=== PATIENT | female | born 1985 | race Caucasian/White ===

== ENCOUNTER → 2022-10-20 | Outpatient (CLI) | payer BC ==
--- NOTE | 2022-10-23 07:42 | MM ---
Reason for Exam: Screening (asymptomatic). Patient History: Menarche at age 11. First Full-Term at age 24. Patient has history of breast feeding. Paternal aunt had breast cancer, age 57. Paternal aunt had ovarian cancer, age 20. Last menstrual period: 10/04/2022 Risk Values: Julia 5 year model risk: 0.6%. NCI Lifetime model risk: 11.1%. Tissue Density: The breast tissue is heterogeneously dense. This may lower the sensitivity of mammography. Findings: Analyzed By CAD. There is no suspicious group of microcalcifications or new suspicious mass in either breast. Overall Assessment: Negative, BI-RAD 1 Management: Screening Mammogram of both breasts in [address] [facility] will attempt to contact patient to return for supplemental views and ultrasound if indicated. Patient should continue monthly self-breast exams. A clinical breast exam by your physician is recommended on an annual basis. This exam should not preclude additional follow-up of suspicious palpable abnormalities. Note on Julia scores and lifetime risk: 1. A Julia score greater than 3% is considered moderate risk. If this is the case, consider specialist referral to assess eligibility for a risk reducing agent. 2. If overall lifetime risk for the development of breast cancer is 20% or higher, the patient may qualify for future screening with alternating mammogram and breast MRI. Electronically signed and approved by: Reagan Jeffers DO
== END | disposition home or self-care (01) ==
LOC: MERGE 09:00 → RADMAMWWP 09:00
PROVIDERS: ATTEND Surgery
DX: Z12.31 Encounter for screening mammogram for malignant neoplasm of breast (principal); Z80.3 Family history of malignant neoplasm of breast; Z80.41 Family history of malignant neoplasm of ovary
CPT/HCPCS: 77063; 77067

== ENCOUNTER → 2023-10-24 | Outpatient (CLI) | payer BC ==
--- NOTE | 2023-10-26 13:50 | MM ---
Reason for Exam: Screening (asymptomatic). Last screening mammogram was performed 12 month(s) ago. Patient History: Menarche at age 11. First Full-Term at age 24. Premenopausal. Patient has history of breast feeding. Paternal aunt had breast cancer, age 57. Paternal aunt had ovarian cancer, age 20. Risk Values: Julia 5 year model risk: 0.6%. NCI Lifetime model risk: 11.1%. Prior Study Comparison: 10/20/2022 Bilateral MG 3D screening mammo w/cad, [facility]. Tissue Density: The breasts are heterogeneously dense, which may obscure small masses. Findings: Analyzed By CAD. Right breast: There is no suspicious group of microcalcifications or new suspicious mass. Left breast: There is no suspicious group of microcalcifications or new suspicious mass. Overall Assessment: Negative, BI-RAD 1 Management: Screening Mammogram of both breasts in [address] [facility] will attempt to contact patient to return for supplemental views and ultrasound if indicated. Patient should continue monthly self-breast exams. A clinical breast exam by your physician is recommended on an annual basis. This exam should not preclude additional follow-up of suspicious palpable abnormalities. Note on Julia scores and lifetime risk: 1. A Julia score greater than 3% is considered moderate risk. If this is the case, consider specialist referral to assess eligibility for a risk reducing agent. 2. If overall lifetime risk for the development of breast cancer is 20% or higher, the patient may qualify for future screening with alternating mammogram and breast MRI. Electronically signed and approved by: Reagan Jeffers DO
== END | disposition home or self-care (01) ==
LOC: RADMAMWWP 10:13
PROVIDERS: ATTEND Surgery
DX: Z12.31 Encounter for screening mammogram for malignant neoplasm of breast (principal); Z80.3 Family history of malignant neoplasm of breast
CPT/HCPCS: 77063; 77067

== ENCOUNTER → 2023-11-16 | Outpatient (CLI) | payer BC ==
[2023-11-16 10:14] VITALS: BP 127/77; PULSE 91; RESP 16; TEMP 98.9
--- NOTE | 2023-11-16 10:44 | P.PN ---
Subjective Progress Note Date: 11/16/23 Principal diagnosis: fibrocystic breast changes 10/27/21 Fibrocystic breast changes Melanie is a 35-year-old white female seen in consultation for Dr. Victor regarding a recent ultrasound of the left breast which revealed a new 1:00 lesion being a complex cyst versus a small fibroadenoma. She has had a stable hypoechoic lesion at 12:00 measuring 5 x 6 x 3 mm since 2017. She has not had any biopsies of this. The patient about 5 years ago noted a buzzing like sensation in the u pper outer quadrant of the left breast, at that time it was felt this was fibrocystic in nature and she should be followed closely. Secondary to COVID there was a delay in obtaining surveillance ultrasound of the left breast and this was finally performed on 05/28/2020. At that time the area of presumed fibroadenoma was stable at 12:00 region however minimally complex cyst versus small fibroadenoma at 1:00 was noted. Recommendation was for 6 month follow-up. The films however have been reviewed with Dr. Garcia from radiology who suggested an ultrasound-guided core biopsy of the 1:00 lesion would be appropriate. Patient states that she has lumpy breasts bilaterally but she has not noted any new specific masses or nodules that she is concerned about. She is not complaining of any nipple discharge or skin changes. She states she knows that if drinking caffeine it causes discomfort in both breasts. A bilateral mammogram was performed and [id number]. This was incomplete and ultr asound of both breasts were performed. On the ultrasound of both breast the right breast revealed a 0.7 x 0.6 cm cystic lesion at 11:00 The left breast revealed a 0.5 x 0.5 probably complex cyst versus fibroadenoma at 12:00, 0.5 x 0.4 cm complex cyst versus fibroadenoma at 12:00, 30.7 x 0.6 cm cystic lesion at 1:00 and a 2.5 x 1.1 cm lymph node in the axilla which appeared to be benign. This was felt to be probably benign BIRADS 3 and ultrasound of the left breast in 6 months was recommended after review of the most recent radiographs. 9-3-21 The patient's biopsy was canceled by Dr. Padilla from radiology as she felt that she did not need to have any biopsy performed. However, she did have some slight increased nodularity posterior to the left nipple areolar complex and physical examination repeat physical exam was recommended. She has not noted any lumps masses or nodules in her breasts for which she is concerned. She has not had any recent new radiographic studies preformed. She is not complaining of any new breast pains. She is not complaining of any nipple discharge or skin changes. Patient's last menstrual period was approximately 3 weeks ago. Her breasts get full and dense or right before her menstrual periods starts. 10-27-21 The patient had a bilateral mammogram performed on . This was benign BIRADS 2 and additionally she had an ultrasound of the left breast performed on the same date this revealed a benign thin-walled cyst at the 12 o'clock position incidentally increased in size. Stable-appearing left axillary lymph node was noted. This was overall assessment benign BIRADS 2 screening mammogram of both breasts in 1 year. The patient herself does not feel any new nodules lumps or masses. She is concerned. 11-16-23 BIlateral mammogram on 10-24-23 BIRAD 1 She is not complaining of any new lumps masses or nodules of concern in either breast, she has not had any surgery on her breast, she has not had any biopsies of her breast. Several years ago there was some concern about a radiographic finding which seems to have stabilized and/or resolved She is not complaining of any nipple discharge or skin changes Caffeine: 1 cup/day nicotine: Negative Chocolate: Negative Family history: father: prostate paternal aunt: breast cancer Hormonal history: Menarche: 11 , age at : 24, breast fed: yes periods regular uses BCP BCP: 17 years hormones: none Surgical history: Tonsillectomy Multiple knee arthroscopies Medical History: Mild intermittent asthma Social history: Nicotine: Negative Alcohol: Negative Drugs: Negative - Constitutional Constitutional: Denies chills, Denies fever - EENT Eyes: denies blurred vision, denies pain Ears, nose, mouth and throat: Denies headache, Denies sore throat - Breasts Breasts: bilateral: as per HPI - Cardiovascular Cardiovascular: Denies chest pain, Denies shortness of breath - Respiratory Respiratory: Denies cough - Gastrointestinal Gastrointestinal: Denies abdominal pain, Denies diarrhea, Denies nausea, Denies vomiting - Genitourinary (Female) Genitourinary: Denies dysuria, Denies hematuria - Menstruation Comment: cycle regulated on BCP Menstruation: Reports period normal - Musculoskeletal Comment: 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 Musculoskeletal: Denies myalgias - Integumentary Integumentary: Denies pruritus, Denies rash - Neurological Neurological: Denies numbness, Denies weakness - Psychiatric Psychiatric: Denies anxiety, Denies depression - Endocrine Endocrine: Denies fatigue, Denies weight change - Hematologic/Lymphatic Comment: none - Allergic/Immunologic Allergic/Immunologic: Reports as per HPI Objective - Vital Signs Vital signs: Vital Signs Temp 98.9 F 11/16/23 10:12 Pulse 91 11/16/23 10:12 Resp 16 11/16/23 10:12 BP 127/77 11/16/23 10:12 Pulse Ox 100 11/16/23 10:12 FiO2 Intake & Output 11/15/23 11/16/23 11/16/23 18:59 06:59 18:59 Weight 68.039 kg - Constitutional General appearance: Present: cooperative - EENT Eyes: Present: EOMI ENT: Present: hearing grossly normal - Neck Neck: Present: normal ROM - Respiratory Respiratory: bilateral: CTA - Cardiovascular Heart sounds: normal: S1, S2 - Integumentary Integumentary: Present: normal turgor - Musculoskeletal Musculoskeletal: Present: gait normal - Psychiatric Psychiatric: Present: A&O x's 3, appropriate affect, intact judgment & insight - Additional findings Additional findings: Breast Exam: BRA: 34D because of width Inspection: Bilateral grade 2 ptosis Palpation: Right breast: Multi positional exam fibrocystic changes no discrete dominant masses or nodules of concern Right axilla: No adenopathy of concern Left breast: Multi-positional examination, Particular attention to the retroareolar area does not reveal any discrete lumps masses or nodules of concern any place in the breast Left axilla: No adenopathy of concern Assessment and Plan Assessment: Impression: Fibrocystic breast changes Plan: Bilateral mammogram in 1 year with physician exam at that time Patient follow up sooner any questions or concerns CC: DR. Leigh, Dr. Crews
== END ==
LOC: WWCWWP 09:48
PROVIDERS: ATTEND Surgery
DX: N60.11 Diffuse cystic mastopathy of right breast (principal); N60.12 Diffuse cystic mastopathy of left breast; N63.21 Unspecified lump in the left breast, upper outer quadrant; U07.1 COVID-19; Z80.3 Family history of malignant neoplasm of breast; Z88.5 Allergy status to narcotic agent

== ENCOUNTER → 2024-11-21 | Outpatient (CLI) | payer BC ==
--- NOTE | 2024-11-24 07:58 | MM ---
Reason for Exam: Screening (asymptomatic). Last mammogram was performed 1 year(s) and 1 month(s) ago. Patient History: Menarche at age 11. First Full-Term at age 24. Premenopausal. Patient has history of breast feeding. Paternal aunt had breast cancer, age 57. Paternal aunt had ovarian cancer, age 20. Risk Values: Julia 5 year model risk: 0.7%. NCI Lifetime model risk: 11.0%. Prior Study Comparison: 10/20/2022 Bilateral MG 3D screening mammo w/cad, [facility]. 10/24/2023 Bilateral MG 3D screening mammo w/cad, [facility]. Tissue Density: There are scattered areas of fibroglandular density. Findings: Analyzed By CAD. Right breast: There is no suspicious group of microcalcifications or new suspicious mass. Left breast: Grouped calcifications right breast MLO view only posterior depth posterior nipple line. Further evaluation with magnification views of the right breast recommended. Not definitively seen laterally on CC view. Overall Assessment: Incomplete: need additional imaging evaluation, BI-RAD 0 Management: Diagnostic Mammogram of the right breast. [facility] will attempt to contact patient to return for supplemental views and ultrasound if indicated. Patient should continue monthly self-breast exams. A clinical breast exam by your physician is recommended on an annual basis. This exam should not preclude additional follow-up of suspicious palpable abnormalities. Note on Julia scores and lifetime risk: 1. A Julia score greater than 3% is considered moderate risk. If this is the case, consider specialist referral to assess eligibility for a risk reducing agent. 2. If overall lifetime risk for the development of breast cancer is 20% or higher, the patient may qualify for future screening with alternating mammogram and breast MRI. [facility], , 11/24/2024 7:55 AM. Electronically signed and approved by: Reagan Jeffers DO
== END | disposition home or self-care (01) ==
LOC: RADMAMWWP 16:41
PROVIDERS: ATTEND Surgery
DX: Z12.31 Encounter for screening mammogram for malignant neoplasm of breast (principal); R92.323 Mammographic fibroglandular density, bilateral breasts; Z80.3 Family history of malignant neoplasm of breast
CPT/HCPCS: 77063; 77067

== ENCOUNTER → 2024-11-26 | Outpatient (CLI) | payer BC ==
--- NOTE | 2024-11-26 15:34 | MM ---
Reason for Exam: Follow-up at short interval from prior study. Last screening mammogram was performed less than 1 month ago. Patient History: Menarche at age 11. First Full-Term at age 24. Premenopausal. Patient has history of breast feeding. Paternal aunt had breast cancer, age 57. Paternal aunt had ovarian cancer, age 20. Risk Values: Julia 5 year model risk: 0.7%. NCI Lifetime model risk: 11.0%. Tissue Density: Right: The breasts are heterogeneously dense, which may obscure small masses. Findings: Analyzed By CAD. Grouped calcifications have more linear linear format possibly within a vessel versus artifact. These are better appreciated on screen mammography than on the magnification views suggesting artifact. No new suspicious masses, calcifications or distortions. Overall Assessment: Benign, BI-RAD 2 Management: Screening Mammogram of both breasts in 1 year. Results were given to the patient verbally at the time of exam. Patient should continue monthly self-breast exams. A clinical breast exam by your physician is recommended on an annual basis. This exam should not preclude additional follow-up of suspicious palpable abnormalities. Note on Julia scores and lifetime risk: 1. A Julia score greater than 3% is considered moderate risk. If this is the case, consider specialist referral to assess eligibility for a risk reducing agent. 2. If overall lifetime risk for the development of breast cancer is 20% or higher, the patient may qualify for future screening with alternating mammogram and breast MRI. [facility], , 11/26/2024 1:56 PM. Electronically signed and approved by: Reagan Jeffers DO
== END | disposition home or self-care (01) ==
LOC: RADMAMWWP 13:10
PROVIDERS: ATTEND Surgery
DX: R92.8 Other abnormal and inconclusive findings on diagnostic imaging of breast (principal); R92.331 Mammographic heterogeneous density, right breast; R92.1 Mammographic calcification found on diagnostic imaging of breast; Z80.3 Family history of malignant neoplasm of breast
CPT/HCPCS: 77061; 77065

== ENCOUNTER → 2024-11-28 | Outpatient (CLI) | payer BC ==
[2024-11-28 09:15] VITALS: BP 131/74; PULSE 84; RESP 16; TEMP 98.1
--- NOTE | 2024-11-28 09:22 | P.PN ---
Subjective Progress Note Date: 11/28/24 Principal diagnosis: fibrocystic breast changes 11/16/23 Principal diagnosis: fibrocystic breast changes 10/27/21 Fibrocystic breast changes Melanie is a 35-year-old white female seen in consultation for Dr. Victor regarding a recent ultrasound of the left breast which revealed a new 1:00 lesion being a complex cyst versus a small fibroadenoma. She has had a stable hypoechoic lesion at 12:00 measuring 5 x 6 x 3 mm since 2016. She has not had any biopsies of this. The patient about 5 years ago noted a buzzing like sensation in the upper outer quadrant of the left breast, at that time it was felt this was fibrocystic in nature and she should be followed closely. Secondary to COVID there was a delay in obtaining surveillance ultrasound of the left breast and this was finally performed on 05/28/2020. At that time the area of presumed fibroadenoma was stable at 12:00 region however minimally complex cyst versus small fibroadenoma at 1:00 was noted. Recommendation was for 6 month follow-up. The films however have been reviewed with Dr. Garcia from radiology who suggested an ultrasound-guided core biopsy of the 1:00 lesion would be appropriate. Patient states that she has lumpy breasts bilaterally but she has not noted any new specific masses or nodules that she is concerned about. She is not complaining of any nipple discharge or skin changes. She states she knows that if drinking caffeine it causes discomfort in both breasts. A bilateral mammogram was performed [place] [id number]. This was incomplete and ultrasound of both breasts were performed. On the ultrasound of both breast the right breast revealed a 0.7 x 0.6 cm cystic lesion at 11:00 The left breast revealed a 0.5 x 0.5 probably complex cyst versus fibroadenoma at 12:00, 0.5 x 0.4 cm complex cyst versus fibroadenoma at 12:00, 30.7 x 0.6 cm cystic lesion at 1:00 and a 2.5 x 1.1 cm lymph node in the axilla which appeared to be benign. This was felt to be probably benign BIRADS 3 and ultrasound of the left breast in 6 months was recommended after review of the most recent radiographs. 9-3-21 The patient's biopsy was canceled by Dr. Padilla from radiology as she felt that she did not need to have any biopsy performed. However, she did have some slight increased nodularity posterior to the left nipple areolar complex and physical examination repeat physical exam was recommended. She has not noted any lumps masses or nodules in her breasts for which she is concerned. She has not had any recent new radiographic studies preformed. She is not complaining of any new breast pains. She is not complaining of any nipple discharge or skin changes. Patient's last menstrual period was approximately 3 weeks ago. Her breasts get full and dense or right before her menstrual periods starts. 10-27-21 The patient had a bilateral mammogram performed on . This was benign BIRADS 2 and additionally she had an ultrasound of the left breast performed on the same date this revealed a benign thin-walled cyst at the 12 o'clock position incidentally increased in size. Stable-appearing left axillary lymph node was noted. This was overall assessment benign BIRADS 2 screening mammogram of both breasts in 1 year. The patient herself does not feel any new nodules lumps or masses. She is concerned. 11-16-23 BIlateral mammogram on 10-24-23 BIRAD 1 She is not complaining of any new lumps masses or nodules of concern in either breast, she has not had any surgery on her breast, she has not had any biopsies of her breast. Several years ago there was some concern about a radiographic finding which seems to have stabilized and/or resolved She is not complaining of any nipple discharge or skin changes 11-28-24 bilateral mammogram on 11-21-24 BIRAD 0, led to a right breast mammogram on 11-26-24 linear calcifications noted personally reviewed; BIRAD 2 She has not noted any new lumps masses or nodules of concern in either breast Julia Model: 5 year risk: 0.7% lifetime risk: 11% Caffeine: 1 cup/day nicotine: Negative Chocolate: Negative Family history: father: prostate paternal aunt: breast cancer Hormonal history: Menarche: 11 , age at : 24, breast fed: yes periods regular uses BCP BCP: 17 years hormones: none Surgical history: Tonsillectomy Multiple knee arthroscopies Medical History: Mild intermittent asthma Social history: Nicotine: Negative Alcohol: Negative Drugs: Negative - Constitutional Constitutional: Denies chills, Denies fever - EENT Eyes: denies blurred vision, denies pain Ears, nose, mouth and throat: Denies headache, Denies sore throat - Breasts Breasts: bilateral: as per HPI - Cardiovascular Cardiovascular: Denies chest pain, Denies shortness of breath - Respiratory Respiratory: Denies cough - Gastrointestinal Gastrointestinal: Denies abdominal pain, Denies diarrhea, Denies nausea, Denies vomiting - Genitourinary (Female) Genitourinary: Denies dysuria, Denies hematuria - Menstruation Comment: cycle regulated on BCP Menstruation: Reports period normal - Musculoskeletal Comment: 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 Musculoskeletal: Denies myalgias - Integumentary Integumentary: Denies pruritus, Denies rash - Neurological Neurological: Denies numbness, Denies weakness - Psychiatric Psychiatric: Denies anxiety, Denies depression - Endocrine Endocrine: Denies fatigue, Denies weight change - Hematologic/Lymphatic Comment: none - Allergic/Immunologic Allergic/Immunologic: Reports as per HPI Objective - Vital Signs Vital signs: Intake & Output 11/27/24 11/28/24 11/28/24 18:59 06:59 18:59 Weight 68.039 kg - Constitutional General appearance: Present: cooperative - EENT Eyes: Present: EOMI ENT: Present: hearing grossly normal - Neck Neck: Present: normal ROM - Respiratory Respiratory: bilateral: CTA - Cardiovascular Rhythm: regular Heart sounds: normal: S1, S2 - Integumentary Integumentary: Present: normal turgor - Musculoskeletal Musculoskeletal: Present: gait normal - Psychiatric Psychiatric: Present: A&O x's 3, appropriate affect, intact judgment & insight - Additional findings Additional findings: Breast Exam: BRA: 34D because of width Inspection: Bilateral grade 2 ptosis Palpation: Right breast: Multi positional exam fibrocystic changes no discrete dominant masses or nodules of concern Right axilla: No adenopathy of concern Left breast: Multi-positional examination, Particular attention to the retroareolar area does not reveal any discrete lumps masses or nodules of con cern any place in the breast Left axilla: No adenopathy of concern Assessment and Plan Assessment: Impression: Fibrocystic breast changes Plan: Bilateral mammogram in 1 year 2025 with physician exam at that time Patient follow up sooner any questions or concerns CC: DR. Leigh, Dr. Crews
== END ==
LOC: WWCWWP 08:42
PROVIDERS: ATTEND Surgery
DX: N60.19 Diffuse cystic mastopathy of unspecified breast (principal); Z88.5 Allergy status to narcotic agent